=== PATIENT | male | born 1975 | race Caucasian/White ===

== ENCOUNTER 2017-12-16 11:36 | Day surgery (SDC) | payer BC ==
[~2017-12-16] VITALS: Ht 193 cm; Wt 106.6 kg
[2017-12-16] VITALS (9 sets, daily range): BP systolic 107–126; BP diastolic 59–74
--- NOTE | 2017-12-16 11:58 | Anethesia Preoperative Eval ---
Anesthesia Pre-op PMH/ROS General Date of Evaluation: Dec 16, 2017 Anesthesiologist: Jesus ASA Score: ASA 2 Mallampati Score Class I : Soft palate, uvula, fauces, pillars visible Class II: Soft palate, uvula, fauces visible Class III: Soft palate, base of uvula visible Class IV: Only hard plate visible Mallampati Classification: Class III Surgeon: Jeannette Diagnosis: HPV Surgical Procedure: Anoscopy with biopsy Anesthesia History: none Family History: no anesthesia problems Allergies: Coded Allergies: No Known Allergies (Unverified , 12/16/17) Medications: see eMAR Patient NPO?: Yes NPO Date: Dec 15, 2017 Past Medical History Cardiovascular: Denies: HTN, CAD, CO, valve dz, arrhythmia, other Pulmonary: Denies: asthma, COPD, JENIFER, other Gastrointestinal/Genitourinary: Denies: GERD, CRI, ESRD, other Neurologic/Psychiatric: Denies: dementia, CVA, depression/anxiety, TIA, other Endocrine: Denies: DM, hypothyroidism, steroids, other HEENT: Denies: cataract (L), cataract (R), glaucoma, NAKNEK (L), NAKNEK (R), other Hematology/Immune: Reports: other - HIV; Denies: anemia, DVT, bleeding disorder Musculoskeletal/Integumentary: Denies: OA, RA, DJD, DDD, edema, other Other: obesity PSxH Narrative: T&A, appy Anesthesia Pre-op Phys. Exam Physician Exam see chart Constitutional: NAD Cardiovascular: RRR Respiratory: CTA Airway Exam Mallampati Score: Class III MO: full ROM: full Teeth: intact Anesthesia Pre-op A/P Labs see chart Studies Pre-op Studies: EKG Risk Assessment & Plan Assessment: ASA II Plan: MAC vs GA Status Change Before Surgery: No Pre-Antibiotics Drug: Italia Camp MD Dec 16, 2017 11:58
[2017-12-16] MEDS ORDERED: ISENTRESS400 MG ORAL (12:36)
[2017-12-16] MEDS ORDERED: TRUVADA 200 MG1 EAC1 ORAL (12:36)
--- NOTE | 2017-12-16 13:03 | Pre-Procedure Note/Attestation ---
Pre-Procedure Note/Attestation Complete Prior to Procedure Planned Procedure: not applicable Procedure Narrative: High resolution anoscopy with biopsies Indications for Procedure Pre-Operative Diagnosis: abnormal anal pap smear Attestation I attest that I discussed the nature of the procedure; its benefits; risks and complications; and alternatives (and the risks and benefits of such alternatives ), prior to the procedure, with the patient (or the patient's legal medical billing representative). I attest that, if there was a reasonable possibility of needing a blood transfusion, the patient (or the patient's legal medical billing representative) was given the [facility] standardized written summary, pursuant to the Alex Hassell Blood Safety Act ([place] Health and Safety Code # 1645, as amended). I attest that I re-evaluated the patient just prior to the surgery and that there has been no change in the patient's H&P, except as documented below: Fely Machado MD Dec 16, 2017 13:03
[2017-12-16] MEDS ORDERED: LR 1000ml 1,000 ML IVLG SCH (13:38)
[2017-12-16] MEDS ORDERED: fentaNYL 100 mcg/2 mL IV PRN (13:45)
[2017-12-16] MEDS ORDERED: DiphenhydrAMINE 50mg/ml Inj IVP PRN (13:45)
[2017-12-16] MEDS ORDERED: Hydromorphone 0.5mg/0.5ml inj IVP PRN (13:45)
[2017-12-16] MEDS ORDERED: Ketorolac 30mg Inj IV PRN (13:45)
[2017-12-16] MEDS ORDERED: Midazolam 2mg/2ml Inj IVP PRN (13:45)
[2017-12-16] MEDS ORDERED: LORazepam Inj 2mg/ml 1ml IV PRN (13:45)
[2017-12-16] MEDS ORDERED: fentaNYL 100 mcg/2 mL IV ONE ×2 (14:29→14:31)
[2017-12-16] MEDS ORDERED: Propofol 200mg/20ml IV ONE (14:29)
[2017-12-16] MEDS ORDERED: Acetic Acid 3% Solution 15ml TOPIC ONE (14:30)
[2017-12-16] MEDS ORDERED: Succinylcholine 20mg/ml 10ml vial ONE (14:31)
[2017-12-16] MEDS ORDERED: Dexamethasone 4mg/ml vial ONE (14:33)
[2017-12-16] MEDS ORDERED: Bupivacaine 0.5% Inj 30 ml vial INJ ONE (14:33)
[2017-12-16] MEDS ORDERED: Ropivacaine 5mg/ml Vial 30ml INJ ONE ×3 (14:33→15:07)
[2017-12-16] MEDS ORDERED: cefOXitin 2gm Inj ONE (14:33)
[2017-12-16] MEDS ORDERED: EPINEPHrine 1mg/1ml Amp ONE (14:33)
[2017-12-16] MEDS ORDERED: Lidocaine 1% MPF 10mg/ml 5ml ONE (15:00)
[2017-12-16] MEDS ORDERED: LR 1000ml ONE (15:00)
[2017-12-16] MEDS ORDERED: Dexamethasone 4mg/ml vial INJ ONE (15:15)
--- NOTE | 2017-12-16 15:35 | Brief Operative Note ---
Immediate Post Operative Note Operative Note Pre-op Diagnosis: abnormal anal pap smear Procedure: same Post-op Diagnosis: same Findings: consistent w/pre-op dx studies Surgeon: Fely Machado MD Anesthesiologist: Italia Lee MD Specimen: none Complications: none Condition: stable Fluids: see anesthesia record Estimated Blood Loss: minimal Drains: none Implant(s) used?: No Fely Machado MD Dec 16, 2017 15:35
--- NOTE | 2017-12-16 22:45 | Operative Note - Dictated ---
DATE OF OPERATION: 12/16/2017 PREOPERATIVE DIAGNOSIS: History of human immunodeficiency virus and abnormal anal Pap smear. POSTOPERATIVE DIAGNOSIS: History of human immunodeficiency virus and abnormal anal Pap smear. PROCEDURE: High-resolution anoscopy with biopsies. SURGEON: Fely Machado M.D. ANESTHESIOLOGIST: Italia Lee M.D. ANESTHESIA: Propofol sedation with local anesthetic. INDICATION FOR PROCEDURE: The patient is a 42-year-old, male, who was sent to my office by his physician, Dr. Joshua Wise for colorectal surgical evaluation of abnormal anal Pap smear. The patient has a history of HIV diagnosed in 2005 and in light of his findings of abnormal anal Pap smears, it was determined at this time to proceed with high-resolution anoscopy with biopsies. DESCRIPTION OF PROCEDURE: Upon consent of the patient, the patient was brought to the operating room and placed in the prone natalia-knife position on the operating room table. Once adequate sedation was established with a propofol drip, the patient's buttocks were prepped and draped in usual surgical fashion. A 40 mL of 0.5% ropivacaine with epinephrine mixed with 80 mg of dexamethasone was used as a perianal and pudendal block. A Hill-Michele retractor was placed into the anal canal. There was noted to be moderate-sized internal hemorrhoids. There was noted to be a condylomatous-appearing lesion in the anterior midline. Multiple biopsies were taken of all 4 quadrants of the perianal region, anal verge, and dentate line. These were all sent off the field as separate specimens. The anal canal stained with 3% acetic acid and all areas stating white were electrofulgurated as well. The anal canal then irrigated and hemostasis was confirmed. Sterile dry dressing was used for outer dressing. Sponge, needle, and instrument counts were correct at the end of the case. The patient was awakened from anesthesia and brought to postanesthesia recovery room in stable condition. ESTIMATED BLOOD LOSS: Less than 5 mL. DRAINS: None. SPECIMEN: Multiple biopsies in all 4 quadrants of the perianal region, anal verge, and dentate line. COMPLICATIONS: None. Fely Machado M.D. DR: KIKA JOB#: [id number] CC: Joshua Wise M.D.; Fax#: [phone]
== END 2017-12-16 16:00 | disposition home or self-care (01) ==
LOC: SUR 11:36
DX: R85.612 Low grade squamous intraepithelial lesion on cytologic smear of anus (LGSIL) (principal); A63.0 Anogenital (venereal) warts; K64.8 Other hemorrhoids; E66.9 Obesity, unspecified
CPT/HCPCS: 46606; J0171; J0330; J0694; J1100; J2250; J2704; J2795; J3010; 94003; 94150